=== PATIENT | female | born 1975 | race Caucasian/White ===

== ENCOUNTER 2017-08-28 00:40 | Inpatient (IN) | payer MEDICAID ==
[~2017-08-28] VITALS: Ht 167.6 cm; Wt 86.8 kg
[2017-08-28 01:00] VITALS: BP 121/74; PULSE 87; RESP 20; TEMP 97.5; O2SAT 100
[2017-08-28] MEDS ORDERED: NALOXONE HCL 0.4 MG/ML AMP IV PUSH PRN (02:15)
[2017-08-28] MEDS ORDERED: ACETAMINOPHEN 325 MG TAB PO PRN (02:15)
[2017-08-28] MEDS: SODIUM CHLOR 0.9% 1000 ML INJ 1,000 ML IV SCH ×2 (02:15→11:32)
[2017-08-28] MEDS ORDERED: ONDANSETRON HCL 4 MG/2 ML VIAL IVP PRN (02:15)
[2017-08-28] MEDS ORDERED: SODIUM CHLORIDE 0.9% FLUSH 10 ML FLUSH IV FLUSH PRN (02:15)
[2017-08-28] MEDS: metroNIDAZOLE 500 MG INJ 100 ML IV SCH ×2 (03:00→10:36)
[2017-08-28] MEDS: NICOTINE 14 MG/24 HR PATCH T-DERMAL SCH ×2 (03:33→07:35)
[2017-08-28] MEDS: CIPROFLOXACIN 400 MG PREMIX 200 ML IV SCH ×2 (03:35→13:11)
[2017-08-28] MEDS: MORPHINE SULFATE 2 MG/ML INJ IV PUSH PRN ×3 (03:35→10:34)
[2017-08-28 04:00] VITALS: BP 116/70; PULSE 85; RESP 20; TEMP 98.3; O2SAT 97
[2017-08-28 07:34] LABS: AUTOMATED NEUTROPHIL # 9.1 TH/MM3 (1.8-7.7); BASOPHIL % 0.1 % (0.0-2.0); EOSINOPHIL % 0.2 % (0.0-4.0); HEMATOCRIT 27.5 % (35.0-46.0); LYMPH % 6.1 % (9.0-44.0); LYMPHOCYTE # 0.6 TH/MM3 (1.0-4.8); MEAN CELL VOLUME 67.6 FL (80.0-100.0); MEAN CORPUSCULAR HEMOGLOBIN 22.2 PG (27.0-34.0); MEAN CORPUSCULAR HGB CONC 32.8 % (32.0-36.0); MONO % 1.8 % (0.0-8.0); MONOCYTE # 0.2 TH/MM3 (0-0.9); NEUT % 91.8 % (16.0-70.0); PLATELET COUNT 331 TH/MM3 (150-450); RED BLOOD COUNT 4.06 MIL/MM3 (4.00-5.30); RED CELL DISTRIBUTION WIDTH 18.6 % (11.6-17.2); WHITE BLOOD COUNT 9.9 TH/MM3 (4.0-11.0)
[2017-08-28 07:50] VITALS: BP 116/65; PULSE 84; RESP 20; TEMP 97.9; O2SAT 97
[2017-08-28 07:53] LABS: CALCIUM 8.3 MG/DL (8.5-10.1)
[2017-08-28 07:54] LABS: BICARBONATE 23.8 MEQ/L (21.0-32.0)
[2017-08-28 07:57] LABS: CREATININE 0.6 MG/DL (0.50-1.00)
[2017-08-28 08:15] LABS: KERATOCYTES OCC (NORMAL); OVALOCYTES 1+ (NORMAL)
[2017-08-28] MEDS ORDERED: SODIUM CHLORIDE 0.9% FLUSH 10 ML FLUSH IV FLUSH SCH (09:00)
[2017-08-28] MEDS ORDERED: REMOVE OLD PATCH-NICOTINE T-DERMAL SCH (09:00)
[2017-08-28] MEDS ORDERED: ACETAMINOPHEN/HYDROcodone 325 MG/10 MG TAB PO PRN (10:15)
--- NOTE | 2017-08-28 11:28 | HHI.HP ---
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 She noticed a small bump there which enlarge. She went to an ER in [place] several days ago and was prescribed clindamycin. Symptoms did not improve. No drainage. No fevers. No abdominal pain nausea or vomiting. The patient went to the ER in [place] last night where a pelvic CT scan showed a probable perirectal abscess. The patient was given IV antibiotics and admitted to the hospital and surgery was consulted. The patient today complains of severe pain somewhat alleviated by morphine however the morphine wears off quickly. 10 point review of systems otherwise negative. Past Family Social History Past Medical History Bartholin's cyst Past Surgical History Diagnostic laparoscopy Gastric bypass surgery 7 years ago Reported Medications Allergies Coded Allergies Type Severity Reaction Last Updated Verified dextromethorphan Allergy Intermediate Hives 08/27/17 Yes doxylamine Allergy Intermediate Hives 08/27/17 Yes ibuprofen Allergy Intermediate Hives 08/27/17 Yes piperacillin Allergy Intermediate Itching 08/28/17 No pseudoephedrine Allergy Intermediate Hives 08/27/17 Yes tazobactam Allergy Intermediate Itching 08/28/17 No hydromorphone Allergy Mild itching 08/28/17 Yes Allergies: Coded Allergies: dextromethorphan (Verified Allergy, Intermediate, Hives, 08/27/17) doxylamine (Verified Allergy, Intermediate, Hives, 08/27/17) ibuprofen (Verified Allergy, Intermediate, Hives, 08/27/17) piperacillin (Unverified Allergy, Intermediate, Itching, 08/28/17) During infusion of 1st dose IV pseudoephedrine (Verified Allergy, Intermediate, Hives, 08/27/17) tazobactam (Unverified Allergy, Intermediate, Itching, 08/28/17) During infusion of 1st dose IV hydromorphone (Verified Allergy, Mild, itching, 08/28/17) Family History Negative for inflammatory bowel disease. Mother has diverticulitis. Social History Drinks socially. Positive tobacco use. Physical Exam Vital Signs Vital Signs Date Time Temp Pulse Resp B/P (MAP) Pulse Ox O2 Delivery O2 Flow Rate FiO2 08/28/17 07:50 97.9 84 20 116/65 (82) 97 08/28/17 04:00 98.3 85 20 116/70 (85) 97 08/28/17 01:00 97.5 87 20 121/74 (90) 100 Physical Exam GENERAL: This is a well-nourished, well-developed patient, in no apparent distress. SKIN: No rashes, ecchymoses or lesions. HEAD: Atraumatic. Normocephalic. EYES: Pupils equal round and reactive. Extraocular motions intact. No scleral icterus. No injection or drainage. NECK: Trachea midline. No JVD or lymphadenopathy. Supple, nontender, no meningeal signs. CARDIOVASCULAR: Regular rate and rhythm without murmurs, gallops, or rubs. RESPIRATORY: Clear to auscultation. Breath sounds equal bilaterally. No wheezes , rales, or rhonchi. GASTROINTESTINAL: Abdomen soft, non-tender, nondistended. No hepato-splenomegaly , or palpable masses. No guarding. MUSCULOSKELETAL: Extremities without clubbing, cyanosis, or edema. No joint tenderness, effusion, or edema noted. No calf tenderness. Negative Homans sign bilaterally. Pelvic exam: Reveals an area of induration and erythema in the left perirectal area which extends anteriorly but does not involve the left labia. It is tender to palpation. NEUROLOGICAL: Awake and alert. Motor and sensory grossly within normal limits. Normal speech. Laboratory Laboratory Tests Test 08/28/17 06:50 White Blood Count 9.9 Red Blood Count 4.06 Hemoglobin 9.0 Hematocrit 27.5 Mean Corpuscular Volume 67.6 Mean Corpuscular Hemoglobin 22.2 Mean Corpuscular Hemoglobin Concent 32.8 Red Cell Distribution Width 18.6 Platelet Count 331 Mean Platelet Volume 8.0 Neutrophils (%) (Auto) 91.8 Lymphocytes (%) (Auto) 6.1 Monocytes (%) (Auto) 1.8 Eosinophils (%) (Auto) 0.2 Basophils (%) (Auto) 0.1 Neutrophils # (Auto) 9.1 Lymphocytes # (Auto) 0.6 Monocytes # (Auto) 0.2 Eosinophils # (Auto) 0.0 Basophils # (Auto) 0.0 CBC Comment AUTO DIFF Differential Comment AUTO DIFF CONFIRMED Ovalocytes 1+ Keratocytes OCC Blood Urea Nitrogen 11 Creatinine 0.60 Random Glucose 142 Calcium Level 8.3 Sodium Level 138 Potassium Level 3.9 Chloride Level 108 Carbon Dioxide Level 23.8 Anion Gap 6 Estimat Glomerular Filtration Rate 110 Result Diagram: 08/28/1750 08/28/[address] shows a ring-enhancing low-density fluid collection abutting the left aspect of the anus measuring 17 mm most likely representing. No abscess. Caprini VTE Risk Assessment Caprini VTE Risk Assessment: No/Low Risk (score <= 1) Caprini Risk Assessment Model Point Value = 1 Point Value = 2 Point Value = 3 Point Value = 5 Age 41-60 Minor surgery BMI > 25 kg/m2 Swollen legs Varicose veins or History of unexplained or recurrent spontaneous Oral contraceptives or hormone replacement Sepsis (< 1 month) Serious lung disease, including pneumonia (< 1 month) Abnormal pulmonary function Acute myocardial infarction Congestive heart failure (< 1 month) History of inflammatory bowel disease Medical patient at bed rest Age 61-74 Arthroscopic surgery Major open surgery (> 45 min) Laparoscopic surgery (> 45 min) Malignancy Confined to bed (> 72 hours) Immobilizing plaster cast Central venous access Age >= 75 History of VTE Family history of VTE Factor V Leiden Prothrombin [id number] Lupus anticoagulant Anticardiolipin antibodies Elevated serum homocysteine Heparin-induced thrombocytopenia Other congenital or acquired thrombophilia Stroke (< 1 month) Elective arthroplasty Hip, pelvis, or leg fracture Acute spinal cord injury (< 1 month) Prophylaxis Regimen Total Risk Factor Score Risk Level Prophylaxis Regimen 0-1 Low Early ambulation 2 Moderate Order ONE of the following: *Sequential Compression Device (SCD) *Heparin 5000 units SQ BID 3-4 Higher Order ONE of the following medications: *Heparin 5000 units SQ TID *Enoxaparin/Lovenox 40 mg SQ daily (WT < 150 kg, CrCl > 30 mL/min) *Enoxaparin/Lovenox 30 mg SQ daily (WT < 150 kg, CrCl > 10-29 mL/min) *Enoxaparin/Lovenox 30 mg SQ BID (WT < 150 kg, CrCl > 30 mL/min) AND/OR *Sequential Compression Device (SCD) 5 or more Highest Order ONE of the following medications: *Heparin 5000 units SQ TID (Preferred with Epidurals) *Enoxaparin/Lovenox 40 mg SQ daily (WT < 150 kg, CrCl > 30 mL/min) *Enoxaparin/Lovenox 30 mg SQ daily (WT < 150 kg, CrCl > 10-29 mL/min) *Enoxaparin/Lovenox 30 mg SQ BID (WT < 150 kg, CrCl > 30 mL/min) AND *Sequential Compression Device (SCD) Assessment and Plan Problem List: (1) Perirectal abscess ICD Code: K61.1 - Rectal abscess (2) Anemia ICD Code: D64.9 - Anemia, unspecified (3) Tobacco use ICD Code: Z72.0 - Tobacco use Assessment and Plan -Left perirectal abscess. Continue Cipro and Flagyl IV. Surgery has been consulted and Dr. Wright will be seeing the patient. Nothing by mouth for now. Lortab with morphine for breakthrough pain. -Anemia. Stable overnight. Likely chronic iron deficiency anemia in this premenopausal patient. -Tobaccoism. Cessation counseled. -DVT prophylaxis with SCDs. Krystal Irby MD Aug 28, 2017 11:28
[2017-08-28 11:50] VITALS: BP 119/61; PULSE 79; RESP 20; TEMP 97.6; O2SAT 100
[2017-08-28 15:50] VITALS: BP 112/53; PULSE 89; RESP 20; TEMP 97.8
[2017-08-28] MEDS ORDERED: LIDOCAINE HCL 1% 50 ML VIAL ONE (16:00)
--- NOTE | 2017-08-28 16:25 | PD.CAR.PN ---
CVT Progress Note Subjective/Hospital Course: 42-year-old female with small perianal abscess of the right perianal area measuring about 2 cm in diameter and fluctuant. Patient has been having pain for about 10 days and now this is mature. I&D that a bedside and about 5 cc the purulent material obtained cultures sent Patient take sitz baths 3 times a day and warm water and after bowel movements Can shower and get it wet Follow-up with me in about 2 weeks in my office Note Abscess of this size does not require hospitalization and the patient would've been best served to have had this done in the emergency room in [place] yesterday. Patient can in discharged today on Cipro and Flagyl Thanks J Objective: Vital Signs Date Time Temp Pulse Resp B/P (MAP) Pulse Ox O2 Delivery O2 Flow Rate FiO2 08/28/17 15:50 97.8 89 20 112/53 (72) 08/28/17 11:50 97.6 79 20 119/61 (80) 100 08/28/17 07:50 97.9 84 20 116/65 (82) 97 08/28/17 04:00 98.3 85 20 116/70 (85) 97 08/28/17 01:00 97.5 87 20 121/74 (90) 100 Labs: Laboratory Tests Test 08/28/17 06:50 White Blood Count 9.9 TH/MM3 (4.0-11.0) Red Blood Count 4.06 MIL/MM3 (4.00-5.30) Hemoglobin 9.0 GM/DL (11.6-15.3) Hematocrit 27.5 % (35.0-46.0) Mean Corpuscular Volume 67.6 FL (80.0-100.0) Mean Corpuscular Hemoglobin 22.2 PG (27.0-34.0) Mean Corpuscular Hemoglobin Concent 32.8 % (32.0-36.0) Red Cell Distribution Width 18.6 % (11.6-17.2) Platelet Count 331 TH/MM3 (150-450) Mean Platelet Volume 8.0 FL (7.0-11.0) Neutrophils (%) (Auto) 91.8 % (16.0-70.0) Lymphocytes (%) (Auto) 6.1 % (9.0-44.0) Monocytes (%) (Auto) 1.8 % (0.0-8.0) Eosinophils (%) (Auto) 0.2 % (0.0-4.0) Basophils (%) (Auto) 0.1 % (0.0-2.0) Neutrophils # (Auto) 9.1 TH/MM3 (1.8-7.7) Lymphocytes # (Auto) 0.6 TH/MM3 (1.0-4.8) Monocytes # (Auto) 0.2 TH/MM3 (0-0.9) Eosinophils # (Auto) 0.0 TH/MM3 (0-0.4) Basophils # (Auto) 0.0 TH/MM3 (0-0.2) CBC Comment AUTO DIFF Differential Comment AUTO DIFF CONFIRMED Ovalocytes 1+ (NORMAL) Keratocytes OCC (NORMAL) Blood Urea Nitrogen 11 MG/DL (7-18) Creatinine 0.60 MG/DL (0.50-1.00) Random Glucose 142 MG/DL (74-106) Calcium Level 8.3 MG/DL (8.5-10.1) Sodium Level 138 MEQ/L (136-145) Potassium Level 3.9 MEQ/L (3.5-5.1) Chloride Level 108 MEQ/L (98-107) Carbon Dioxide Level 23.8 MEQ/L (21.0-32.0) Anion Gap 6 MEQ/L (5-15) Estimat Glomerular Filtration Rate 110 ML/MIN (>89) Result Diagram: 08/28/17 0650 08/28/17 0650 Marian Munoz MD Aug 28, 2017 16:25
[2017-08-28] MEDS ORDERED: CIPR-9 PO (16:32)
[2017-08-28] MEDS ORDERED: METR-1 PO (16:32)
--- NOTE | 2017-08-28 16:33 | HHI.DCPOC ---
Discharge Care Plan Diagnosis: (1) Perirectal abscess Goals to Promote Your Health * To prevent worsening of your condition and complications * To maintain your health at the optimal level Directions to Meet Your Goals Take your medications as prescribed Follow your dietary instruction Follow activity as directed Keep your appointments as scheduled Take your immunizations and boosters as scheduled If your symptoms worsen call your PCP, if no PCP go to Urgent Care Center or Emergency Room Smoking is Dangerous to Your Health. Avoid second hand smoke Call the 24-hour hour crisis hotline for domestic abuse at [employer] Aug 28, 2017 16:33
--- NOTE | 2017-08-28 16:33 | HHI.DCPOC ---
Discharge Care Plan Diagnosis: (1) Perirectal abscess Goals to Promote Your Health * To prevent worsening of your condition and complications * To maintain your health at the optimal level Directions to Meet Your Goals Take your medications as prescribed Follow your dietary instruction Follow activity as directed Keep your appointments as scheduled Take your immunizations and boosters as scheduled If your symptoms worsen call your PCP, if no PCP go to Urgent Care Center or Emergency Room Smoking is Dangerous to Your Health. Avoid second hand smoke Call the 24-hour hour crisis hotline for domestic abuse at [employer] Aug 28, 2017 16:33
--- NOTE | 2017-08-28 16:33 | HHI.DCPOC ---
Discharge Care Plan Diagnosis: (1) Perirectal abscess Goals to Promote Your Health * To prevent worsening of your condition and complications * To maintain your health at the optimal level Directions to Meet Your Goals Take your medications as prescribed Follow your dietary instruction Follow activity as directed Keep your appointments as scheduled Take your immunizations and boosters as scheduled If your symptoms worsen call your PCP, if no PCP go to Urgent Care Center or Emergency Room Smoking is Dangerous to Your Health. Avoid second hand smoke Call the 24-hour hour crisis hotline for domestic abuse at [employer] Aug 28, 2017 16:33
[2017-08-28] MEDS ORDERED: PERC7.5T13 PO (16:41)
[2017-08-28] MEDS ORDERED: ACETAMINOPHEN/HYDROcodone 325 MG/5 MG TAB PO ONE (16:45)
--- NOTE | 2017-08-28 17:39 | MP ---
cc: MARIAN DEWEY MD DATE OF SURGERY: 08/28/2017 PREOPERATIVE DIAGNOSIS: Sparing of abscess of the right buttock. POSTOPERATIVE DIAGNOSIS: Sparing of abscess of the right buttock. OPERATION: Incision and drainage of perianal abscess. SURGEON: Marian Dewey MD. ANESTHESIA 1% Xylocaine ESTIMATED BLOOD LOSS Minimal. PROCEDURE: The patient prepped and draped usual fashion. Area infiltrated with Xylocaine. The patient has a small about 2 cm in diameter fluctuant abscess in perianal area, lateral and somewhat anterior to the anus on the right side at about 2 o'clock a small incision is made with a 15 blade about 5 cc of liquid purulent material was obtained. A foul-smelling this was cultured for anaerobes and aerobes and the wound is irrigated with saline, packed with gauze and dressing applied. The patient tolerated the procedure well. P.S. The patient can be discharged at this point on oral antibiotics and follow up with my office about 2 weeks she should take sitz baths about three times a day in warm water. Marian SAMS/buzz /4:35 PM /5:35 PM
== END 2017-08-28 17:13 | disposition home or self-care (01) | DRG 349 ==
LOC: PHEDDLT 00:40 → PH3A 00:50
PROVIDERS: ADMIT Internal Medicine; ATTEND Internal Medicine
PROC: 0D9Q0ZZ Drainage of Anus, Open Approach (ICD-10-PCS; principal; 2017-08-28)
DX: K61.0 Anal abscess (principal); D50.9 Iron deficiency anemia, unspecified; F17.200 Nicotine dependence, unspecified, uncomplicated; Z98.84 Bariatric surgery status
CPT/HCPCS: 72193; 80048; 80053; 85025; 87040; 87070; 87077; 87186; 87205; J0744; J1100; J1170; J2270; J2543; J3370; J7030; J7050; Q9967

== ENCOUNTER 2017-09-06 10:36 | Emergency (ER) | payer MEDICAID ==
[~2017-09-06] VITALS: Ht 167.6 cm; Wt 86.0 kg
[~2017-09-06 10:36] MED LIST: CIPR-9 PO; METR-1 PO; PERC7.5T13 PO
[2017-09-06 10:37] VITALS: BP 135/70; PULSE 85; RESP 16; TEMP 98; O2SAT 100
[2017-09-06 10:49] VITALS: BP 111/78; PULSE 74; RESP 16; O2SAT 100
--- NOTE | 2017-09-06 11:07 | PD ---
HPI Chief Complaint: Skin Problem Time Seen by Provider: 11:06 Travel History International Travel<30 days: No Contact w/Intl Traveler<30days: No Traveled to known affect area: No History of Present Illness HPI 42-year-old female presents the emergency department with question of recurrent perirectal abscess. Patient was treated here on [address] Lynn, who drained the abscess and placed packing. Patient is currently on Cipro and metronidazole by mouth. Patient states she has been doing well until a couple days ago with increasing pain and swelling just below her left labia and above the rectal area. Patient denies fever, drainage, or other symptoms. Patient states her pain has been worsening the last 24 hours. She has multiple allergies including dextromethorphan, doxylamine, hydromorphone, ibuprofen, piperacillin, pseudoephedrine, and tazobactam. PFSH Past Medical History Medical History: Denies Significant Hx Cancer: No Cardiovascular Problems: No Endocrine: No Immune Disorder: No Musculoskeletal: No Neurologic: No Psychiatric: No Reproductive: No Respiratory: No ?: Not Past Surgical History Abdominal Surgery: Yes (gastric by pass 2009) Gynecologic Surgery: Yes Social History Alcohol Use: No Tobacco Use: Yes (2 ppd) Substance Use: No Allergies-Medications (Allergen,Severity, Reaction): Coded Allergies: dextromethorphan (Verified Allergy, Intermediate, Hives, 09/06/17) doxylamine (Verified Allergy, Intermediate, Hives, 09/06/17) ibuprofen (Verified Allergy, Intermediate, Hives, 09/06/17) piperacillin (Unverified Allergy, Intermediate, Itching, 09/06/17) During infusion of 1st dose IV pseudoephedrine (Verified Allergy, Intermediate, Hives, 09/06/17) tazobactam (Unverified Allergy, Intermediate, Itching, 09/06/17) During infusion of 1st dose IV hydromorphone (Verified Allergy, Mild, itching, 09/06/17) Reported Meds & Prescriptions Reported Meds & Active Scripts Active Percocet (Oxycodone-Acetaminophen) 7.5-325 mg Tab 1 Tab PO Q6H PRN Flagyl (Metronidazole) 500 Mg Tab 500 Mg PO TID 10 Days Cipro (Ciprofloxacin HCl) 500 Mg Tab 500 Mg PO BID 10 Days Review of Systems Except as stated in HPI: all other systems reviewed are Neg General / Constitutional: No: Fever Eyes: No: Visual changes HENT: No: Headaches Cardiovascular: No: Chest Pain or Discomfort Respiratory: No: Shortness of Breath Gastrointestinal: No: Abdominal Pain Genitourinary: No: Dysuria Musculoskeletal: No: Pain Skin: Positive Lesions, No Rash Neurologic: No: Weakness Psychiatric: No: Depression Endocrine: No: Polydipsia Hematologic/Lymphatic: No: Easy Bruising Physical Exam Narrative GENERAL: Patient appears in no obvious distress. SKIN: Warm and dry. Normal color. Normal turgor. Patient's perineum is examined with nursing staff present showing an almond size firm tender indurated area to the left perineum between the left labia in the rectum without obvious signs of erythema, pointing, or drainage. HEAD: Atraumatic. Normocephalic. EYES: Pupils equal and round. No scleral icterus. No injection or drainage. ENT: No nasal bleeding or discharge. Mucous membranes pink and moist. NECK: Trachea midline. Pharynx is clear. Airway is patent. CARDIOVASCULAR: Regular rate and rhythm. RESPIRATORY: No accessory muscle use. Clear to auscultation. Breath sounds equal bilaterally. GASTROINTESTINAL: Abdomen soft, non-tender, nondistended. Hepatic and splenic margins not palpable. MUSCULOSKELETAL: Extremities without clubbing, cyanosis, or edema. No obvious deformities. NEUROLOGICAL: Awake and alert. No obvious cranial nerve deficits. Motor grossly within normal limits. Five out of 5 muscle strength in the arms and legs. Normal speech. PSYCHIATRIC: Appropriate mood and affect; insight and judgment normal. Data Data Last Documented VS Vital Signs Date Time Temp Pulse Resp B/P (MAP) Pulse Ox O2 Delivery O2 Flow Rate FiO2 09/06/17 10:49 74 16 111/78 (89) 100 Room Air 09/06/17 10:37 98.0 [facility] Medical Decision Making Medical Screen Exam Complete: Yes Emergency Medical Condition: Yes Medical Record Reviewed: Yes Differential Diagnosis Cellulitis. Abscess. Recurrent perirectal abscess. Possible fistula. Narrative Course Call was placed to Dr. Lynn as the patient is [address] Wright is aware the patient is here in the emergency department and plans to come see her. Labs are not ordered at this time. Dr. Wright was in to see the patient and feels she has a noninfected Bartholin's gland cyst as opposed to recurring perirectal cyst. As the patient is already on Cipro and metronidazole she is referred to the [facility] for further treatment. Diagnosis Primary Impression: Cyst of Bartholin's gland duct Referrals: [facility] Patient Instructions: General Instructions Additional Instructions: Dr. Wright was in to see the patient and feels she has a noninfected Bartholin's gland cyst as opposed to recurring perirectal cyst. As the patient is already on Cipro and metronidazole she is referred to the [facility] for further treatment. Med/Other Pt SpecificInfo: No Change to Meds Disposition: 01 DISCHARGE HOME Condition: Stable Rafiq Giron Sep 06, 2017 11:07
--- NOTE | 2017-09-06 12:57 | PD.CAR.PN ---
CVT Progress Note Subjective/Hospital Course: 42 yo had perianal abscess drained about 10 days ago. Now presents with a lesion that appeared higher, more anteriorly at labial edge. PE performed with the nurse. Patient has well healed perianal abscess scar. No infection. L inferior labial edge displays a non-infected, soft, 1cm in diameter mass consistent with Bartholin's cyst Patient needs pens and pencils dipper. referral and excision of the same before it gets infected. Thanks J Objective: Vital Signs Date Time Temp Pulse Resp B/P (MAP) Pulse Ox O2 Delivery O2 Flow Rate FiO2 09/06/17 10:49 74 16 111/78 (89) 100 Room Air 09/06/17 10:44 (91) 09/06/17 10:37 98.0 85 16 135/70 (91) 100 Room Air Marian Munoz MD Sep 06, 2017 12:56
[2017-09-06 13:21] VITALS: BP 111/78
[2017-09-06] MEDS ORDERED: ZOFR4TAB3 SL (21:03)
[2017-09-06] MEDS ORDERED: PERC5TAB12 PO (21:03)
== END 2017-09-06 13:26 | disposition home or self-care (01) ==
LOC: NEPE 10:36
DX: N75.0 Cyst of Bartholin's gland (principal); F17.200 Nicotine dependence, unspecified, uncomplicated; Z88.6 Allergy status to analgesic agent; Z88.0 Allergy status to penicillin; Z88.8 Allergy status to other drugs, medicaments and biological substances
CPT/HCPCS: 99281